=== PATIENT | male | born 1975 | race Caucasian/White ===

== ENCOUNTER 2018-04-14 18:23 | Emergency (ER) | payer MEDICARE ==
[2018-04-14 18:27] VITALS: BP 112/75; PULSE 86; RESP 18; TEMP 97.8
--- NOTE | 2018-04-14 18:57 | ED ---
Back Pain HPI - General Chief Complaint: Back Pain/Injury Stated Complaint: BACK INJURY Time Seen by Provider: 04/14/18 18:34 Source: patient Limitations: no limitations - History of Present Illness Initial Comments: This is a 43-year-old male with past medical history of chronic low back pain who presents today for chief complaint of worsening back pain times one day. 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 Patient states is able to her after the accident, denies any loss of bowel or bladder control, numbness, tingling, paresthesias or loss of sensation of the lower extremities, or muscle weakness. He admitted to increased pain with flexion over the lumbar spine denied radiation or pain in the lower extremities bilaterally. Patient states that he takes [place] and Norflex at home for chronic low back pain and muscle spasm. Patient states that he is on norco at home. Patient is following his primary care physician for low back pain who was supposed to give a referral [facility] for further evaluation and treatment. Patient has had previous low back procedure in 2012 he states at [facility] for ruptured L3 L4 L5 disc. Since patient denies any new low back trauma, falls or accidents. Patient presented today because he thinks he strained his back. Patient denies any , IVDU, recent weight loss, recent fever, chills, shortness of breath, chest pain, flank pain, abdominal pain, nausea or vomiting, numbness or tingling, dysuria or hematuria, constipation or diarrhea, headaches or visual changes, or any other complaints. - Related Data Allergies Allergy/AdvReac Type Severity Reaction Status Date / Time Penicillins Allergy Unknown Verified 04/14/18 18:28 Review of Systems ROS Statement: Those systems with pertinent positive or pertinent negative responses have been documented in the HPI. ROS Other: All systems not noted in ROS Statement are negative. Constitutional: Denies: fever, chills Eyes: Denies: vision change ENT: Denies: hearing loss Respiratory: Denies: cough, dyspnea, wheezes, hemoptysis, stridor Cardiovascular: Denies: chest pain, palpitations, orthopnea, edema Endocrine: Denies: fatigue Gastrointestinal: Denies: abdominal pain, nausea, vomiting Genitourinary: Denies: urgency, dysuria, frequency, hematuria Musculoskeletal: Reports: as per HPI, back pain Skin: Denies: rash, lesions Neurological: Denies: headache, weakness, numbness, paresthesias, confusion, abnormal gait Past Medical History History of Any Multi-Drug Resistant Organisms: None Reported Past Surgical History: Back Surgery Additional Past Surgical History / Comment(s): spleen repair, facial reconstruction, left shoulder Past Psychological History: Bipolar, Schizoaffective Disorder Smoking Status: Never smoker Past Alcohol Use History: None Reported Past Drug Use History: None Reported General Exam - General Exam Comments Initial Comments: General: The patient is awake and alert, in no distress, and does not appear acutely ill. Eye: Pupils are equal, round and reactive to light, extra-ocular movements are intact. No nystagmus. There is normal conjunctiva bilaterally. No signs of icterus. Ears, nose, mouth and throat: There are moist mucous membranes and no oral lesions. Neck: The neck is supple, there is no tenderness or JVD. Cardiovascular: There is a regular rate and rhythm. No murmur, rub or gallop is appreciated. Respiratory: Lungs are clear to auscultation, respirations are non-labored, breath sounds are equal. No wheezes, stridor, rales, or rhonchi. Musculoskeletal: No erythema, rashes or lesions of the lumbar spine, no obvious deformities. Patient able to forward flex, hyperextend, lateral flexion and rotatory of the lumbar spine with more discomfort with forward flexion. Patient denied midline tenderness to palpation of the lumbar vertebral column, however he admitted to bilateral paravertebral muscle tenderness to palpation with the left greater than the right. Strength 5/5 at the hips, knees, ankle and feet bilaterally. Sensation intact of LE equally b/l , including saddle region. Pulses equal bilaterally 2+. Pt able to heel and toe walk without difficulty. Gait ataxic. No evidence of muscle spasm or fasciculations. +2/5 patellar and achilles DTR. Neurological: A&O x 3. CN II-XII intact, There are no obvious motor or sensory deficits. Coordination appears grossly intact. Speech is normal. Skin: Skin is warm and dry and no rashes or lesions are noted. Psychiatric: Cooperative, appropriate mood & affect, normal judgment. Limitations: no limitations Course Vital Signs 04/14/18 18:24 Temperature 97.8 F Pulse Rate 86 Respiratory 18 Rate Blood Pressure 112/75 O2 Sat by Pulse 98 Oximetry Medical Decision Making - Medical Decision Making Pt given valium 5mg and home rx of norco for pain and muscle tension of the lumbar spine. XR obtained revealed no acute process and normal height between vertebral bodies. Pt stated that the valium helped a little bit. He showed no signs of neurovascular compromise. At this time given hx & physican exam findings with (-) XR of lumbar spine pt needs further evaluation from orthopedic surgery for both his acute and chronic low back pain. His acute pain is most likely due to a lumbar strain. Case was discussed in detail with Dr. Roberts who agreed with impression and plan. pt stated that he had been trying to get an orthopedic referal from his PCP for orthopedics and was pleased with plan. At this time i have low suspicion for a cauda equina or any neurovascular compromise. Pt was discharged in stable condition. Disposition Clinical Impression: Low back strain, Acute exacerbation of chronic low back pain Disposition: HOME SELF-CARE Condition: Good Instructions: Acute Low Back Pain (ED), Chronic Back Pain (ED) Additional Instructions: Please use home medication as discussed. Please follow-up in the next 2 days with [facility]. Please return to emergency room if the symptoms increase or worsen or for any other concerns. Is patient prescribed a controlled substance at d/c from ED?: No Referrals: Margo Dias MD [Primary Care Provider] - 1-2 days Carol Villanueva PAC [PHYSICIAN [facility]] - 1-2 days Time of Disposition: 20:32
[2018-04-14] MEDS ORDERED: DIAZEPAM 5 MG TAB PO STA (19:19)
[2018-04-14] MEDS ORDERED: HYDROcodone/APAP 7.5-325MG 1 EACH TAB PO ONE (19:20)
--- NOTE | 2018-04-14 20:20 | XR ---
EXAMINATION TYPE: XR lumbar spine 2 or 3V DATE OF EXAM: 04/14/2018 COMPARISON: NONE HISTORY: 43-year-old male with low back pain TECHNIQUE: 3 views FINDINGS: Small T12 ribs. 5 lumbar type vertebral bodies. Mild multilevel degenerative disc disease. Mild facet arthropathy lower lumbar spine. Vertebral body heights are preserved. Alignment is maintained. IMPRESSION: Mild degenerative disc disease. Mild facet arthropathy lower lumbar spine. No vertebral compression c ollapse or malalignment.
== END 2018-04-14 20:38 | disposition home or self-care (01) ==
LOC: EC 18:23
DX: S39.012A Strain of muscle, fascia and tendon of lower back, initial encounter (principal); Z98.890 Other specified postprocedural states; Z88.0 Allergy status to penicillin; X50.1XXA Overexertion from prolonged static or awkward postures, initial encounter
CPT/HCPCS: 72100; 99283

== ENCOUNTER 2018-08-27 21:43 | Emergency (ER) | payer MEDICARE ==
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
[2018-08-27 23:59] LABS: Basophils # (A) 0.1 k/uL (0-0.2); Basophils % (A) 1 %; Eosinophils # (A) 0.4 k/uL (0-0.7); Eosinophils % (A) 5 %; HCT 44.5 % (39.0-53.0); HGB 15.2 gm/dL (13.0-17.5); Lymphocytes # (A) 2.2 k/uL (1.0-4.8); Lymphocytes % (A) 29 %; MCH 31.4 pg (25.0-35.0); MCHC 34.3 g/dL (31.0-37.0); MCV 91.8 fL (80.0-100.0); Mean Platelet Volume 6.6; Monocytes # (A) 0.4 k/uL (0-1.0); Monocytes % (A) 5 %; Neutrophils # (A) 4.3 k/uL (1.3-7.7); Neutrophils % (A) 58 %; Platelet Count 154 k/uL (150-450); RBC 4.85 m/uL (4.30-5.90); RDW 13.2 % (11.5-15.5); WBC 7.4 k/uL (3.8-10.6)
[2018-08-28 00:10] LABS: Anion Gap 7 mmol/L; Blood Urea Nitrogen 9 mg/dL (9-20); Calcium 9.1 mg/dL (8.4-10.2); Carbon Dioxide 25 mmol/L (22-30); Chloride 109 mmol/L (98-107); Glucose 78 mg/dL (74-99); Potassium 3.4 mmol/L (3.5-5.1); Sodium 141 mmol/L (137-145); Total Protein 6.6 g/dL (6.3-8.2)
[2018-08-28 00:11] LABS: ALT 108 U/L (21-72); AST 70 U/L (17-59); Acetaminophen <10.0 ug/mL; Albumin 3.8 g/dL (3.5-5.0); Alkaline Phosphatase 61 U/L (38-126); Salicylate <1.0 mg/dL; Total Bilirubin 0.6 mg/dL (0.2-1.3)
[2018-08-28 09:41] VITALS: BP 131/84; PULSE 75; RESP 17; TEMP 97.4
[2018-08-28 10:14] LABS: Appearance,Urine Cloudy (Clear); Bacteria,Urine Rare /hpf; Bilirubin,Urine Negative (Negative); Blood,Urine Negative (Negative); Color,Urine Yellow; Glucose,Urine (UA) Negative (Negative); Ketones,Urine Negative (Negative); Leukocyte Esterase,Urine Moderate (Negative); Mucus,Urine Few /hpf; Nitrite,Urine Negative (Negative); Protein,Urine Trace (Negative); RBC,Urine 4 /hpf (0-5); Specific Gravity,Urine 1.015 (1.001-1.035); Squamous Epithelial Cell,Urine 4 /hpf (0-4); Urobilinogen,Urine <2.0 mg/dL (<2.0); WBC,Urine 17 /hpf (0-5)
[2018-08-28 10:17] LABS: Amphetamine Screen,Urine Detected (NotDetected); Barbiturate Screen,Urine Not Detected (NotDetected); Benzodiazepines Screen,Urine Detected (NotDetected); Cocaine Screen,Urine Not Detected (NotDetected); Methadone Screen, Urine Not Detected (NotDetected); Opiate Screen,Urine Not Detected (NotDetected); Oxycodone Screen, Urine Not Detected (NotDetected); Phencyclidine Screen,Urine Not Detected (NotDetected); Tricyclic Antidepressant,Urine Detected (NotDetected); Urn Cannabinoid Scrn Detected (NotDetected)
[2018-08-28 14:26] LABS: ALT 107 U/L (21-72); AST 73 U/L (17-59); Alkaline Phosphatase 66 U/L (38-126); Anion Gap 6 mmol/L; Blood Urea Nitrogen 8 mg/dL (9-20); Calcium 9.2 mg/dL (8.4-10.2); Carbon Dioxide 26 mmol/L (22-30); Chloride 110 mmol/L (98-107); Glucose 74 mg/dL (74-99); Potassium 3.9 mmol/L (3.5-5.1); Sodium 142 mmol/L (137-145); Total Bilirubin 0.8 mg/dL (0.2-1.3); Total Protein 6.9 g/dL (6.3-8.2)
== END 2018-08-28 18:54 ==
LOC: EC 21:43
DX: F20.0 Paranoid schizophrenia (principal); Z88.0 Allergy status to penicillin
CPT/HCPCS: 36415; 80053; 80306; 81001; 82075; 83520; 85025; 93005; 99285

== ENCOUNTER 2019-01-01 14:26 | Inpatient (IN) | payer MEDICARE ==
--- NOTE | 2019-01-01 18:32 | ED ---
General Adult HPI - General Chief complaint: Psychiatric Symptoms Stated complaint: Mental health, waste picker order Time Seen by Provider: 01/01/19 14:34 Source: patient, RN notes reviewed Mode of arrival: ambulatory Limitations: no limitations - History of Present Illness Initial comments: 43-year-old male with a past medical history of bipolar disorder, schizoaffective disorder presents to the emergency department by pickup order. Patient states that he is in an argument with his sister. States that he is staying in his mother's house and his sister's is staying there and appears there is no reason for her to be there. States that he is unhappy there are two teenage girls and seems very angry at them. Patient states he has been taking his medications on it off.Patient has no other complaints at this time including shortness of breath, chest pain, abdominal pain, nausea or vomiting, headache, or visual changes. - Related Data Home Medications Medication Instructions Recorded Confirmed ARIPiprazole [Abilify] 20 mg PO DAILY 01/01/19 01/01/19 Melatonin 5 mg PO HS 01/01/19 01/01/19 Allergies Allergy/AdvReac Type Severity Reaction Status Date / Time Penicillins Allergy Unknown Verified 01/01/19 14:55 Review of Systems ROS Statement: Those systems with pertinent positive or pertinent negative responses have been documented in the HPI. ROS Other: All systems not noted in ROS Statement are negative. Past Medical History Past Medical History: No Reported History History of Any Multi-Drug Resistant Organisms: None Reported Past Surgical History: Back Surgery Additional Past Surgical History / Comment(s): spleen repair, facial reconstruction, left shoulder Past Psychological History: Bipolar, Schizoaffective Disorder Smoking Status: Current some day smoker Past Alcohol Use History: None Reported Past Drug Use History: None Reported General Exam Limitations: no limitations General appearance: alert, in no apparent distress Head exam: Present: atraumatic, normocephalic, normal inspection Eye exam: Present: normal appearance, PERRL, EOMI. Absent: scleral icterus, conjunctival injection, periorbital swelling ENT exam: Present: normal exam, mucous membranes moist Neck exam: Present: normal inspection, full ROM. Absent: tenderness, meningismus, lymphadenopathy Respiratory exam: Present: normal lung sounds bilaterally. Absent: respiratory distress, wheezes, rales, rhonchi, stridor Cardiovascular Exam: Present: regular rate, normal rhythm, normal heart sounds. Absent: systolic murmur, diastolic murmur, rubs, gallop, clicks Neurological exam: Present: alert, oriented X3, CN II-XII intact Psychiatric exam: Present: agitated Course Vital Signs 01/01/19 14:27 Temperature 97.9 F Pulse Rate 107 H Respiratory 18 Rate Blood Pressure 154/100 O2 Sat by Pulse 96 Oximetry Medical Decision Making - Medical Decision Making 43-year-old agitated appearing male presents by pickup order. Patient has history of schizophrenia. Patient is staying with his mom and his sister and 2 teenage grosser staying there. Patient is very angry at his sister and the two girls for being in the house when it is not necessary. I'm uncomfortable with letting patient go home with agitated at 2 teenage girls. EPS evaluated patient and agrees with this. Patient will be admitted. Patient actually is receptive to this and agrees to be admitted. Disposition Clinical Impression: Agitation, Schizoaffective disorder Disposition: ADMITTED IP TO THIS HOSP Condition: Fair Is patient prescribed a controlled substance at d/c from ED?: No Referrals: Margo Dias MD [Primary Care Provider] - 1-2 days Time of Disposition: 18:32
[2019-01-01] MEDS ORDERED: MAG HYDROX/AL HYDROX/SIMETH 30 ML CUP PO PRN (19:31)
[2019-01-01] MEDS ORDERED: MAGNESIUM HYDROXIDE 2,400 MG/10 ML CUP PO PRN (19:31)
[2019-01-01] MEDS ORDERED: ZIPRASIDONE 20 MG VIAL IM PRN (19:31)
[2019-01-01] MEDS ORDERED: LORazepam 2 MG/ML INJ IM PRN (19:37)
[2019-01-01] MEDS: MELATONIN 5 MG TABLET PO SCH (21:10)
[2019-01-02 09:14] LABS: Basophils # (A) 0.1 k/uL (0-0.2); Basophils % (A) 1 %; Eosinophils # (A) 0.3 k/uL (0-0.7); Eosinophils % (A) 3 %; HCT 48.3 % (39.0-53.0); HGB 16.4 gm/dL (13.0-17.5); Lymphocytes # (A) 1.3 k/uL (1.0-4.8); Lymphocytes % (A) 16 %; MCH 31.5 pg (25.0-35.0); MCV 92.5 fL (80.0-100.0); Mean Platelet Volume 7.1; Monocytes # (A) 0.5 k/uL (0-1.0); Monocytes % (A) 6 %; Neutrophils # (A) 5.8 k/uL (1.3-7.7); Neutrophils % (A) 71 %; Platelet Count 176 k/uL (150-450); RBC 5.22 m/uL (4.30-5.90); RDW 12.8 % (11.5-15.5); WBC 8.3 k/uL (3.8-10.6)
[2019-01-02 09:26] LABS: ALT 45 U/L (21-72); AST 32 U/L (17-59); Albumin 4.4 g/dL (3.5-5.0); Alkaline Phosphatase 55 U/L (38-126); Anion Gap 8 mmol/L; Bilirubin, Delta 0.3 mg/dL (0.0-0.2); Bilirubin,Unconjugated 1.1 mg/dL (0.0-1.1); Blood Urea Nitrogen 12 mg/dL (9-20); Calcium 9.3 mg/dL (8.4-10.2); Carbon Dioxide 25 mmol/L (22-30); Chloride 106 mmol/L (98-107); Cholesterol 150 mg/dL (<200); Glucose 134 mg/dL (74-99); HDL Cholesterol 36 mg/dL (40-60); LDL Cholesterol,Calculated 89 mg/dL (0-99); Potassium 4.4 mmol/L (3.5-5.1); Sodium 139 mmol/L (137-145); Total Bilirubin 1.4 mg/dL (0.2-1.3); Triglycerides 125 mg/dL (<150)
[2019-01-02] MEDS: ACETAMINOPHEN TAB 325 MG TAB PO PRN (09:27)
[2019-01-02] MEDS ORDERED: IBUPROFEN 800 MG TAB PO PRN (11:09)
--- NOTE | 2019-01-02 11:09 | P.HP ---
Psychiatric H&P - . History & Physical: Allergies Allergy/AdvReac Type Severity Reaction Status Date / Time Penicillins Allergy Unknown Verified 01/01/19 14:55 Vital Signs Temp 97.4 F L 01/01/19 21:49 Pulse 78 01/01/19 21:49 Resp 20 01/01/19 21:49 BP 120/77 01/01/19 21:49 Pulse Ox 99 01/01/19 18:39 Intake & Output 01/01/19 01/02/19 01/02/19 18:59 06:59 18:59 Weight 109.905 kg 107.8 kg Laboratory Last Values WBC 8.3 k/uL (3.8-10.6) 01/02/19 08:25 RBC 5.22 m/uL (4.30-5.90) 01/02/19 08:25 Hgb 16.4 gm/dL (13.0-17.5) 01/02/19 08:25 Hct 48.3 % (39.0-53.0) 01/02/19 08:25 MCV 92.5 fL (80.0-100.0) 01/02/19 08:25 MCH 31.5 pg (25.0-35.0) 01/02/19 08:25 MCHC 34.0 g/dL (31.0-37.0) 01/02/19 08:25 RDW 12.8 % (11.5-15.5) 01/02/19 08:25 Plt Count 176 k/uL (150-450) 01/02/19 08:25 Neutrophils % 71 % 01/02/19 08:25 Lymphocytes % 16 % 01/02/19 08:25 Monocytes % 6 % 01/02/19 08:25 Eosinophils % 3 % 01/02/19 08:25 Basophils % 1 % 01/02/19 08:25 Neutrophils # 5.8 k/uL (1.3-7.7) 01/02/19 08:25 Lymphocytes # 1.3 k/uL (1.0-4.8) 01/02/19 08:25 Monocytes # 0.5 k/uL (0-1.0) 01/02/19 08:25 Eosinophils # 0.3 k/uL (0-0.7) 01/02/19 08:25 Basophils # 0.1 k/uL (0-0.2) 01/02/19 08:25 Sodium 139 mmol/L (137-145) 01/02/19 08:45 Potassium 4.4 mmol/L (3.5-5.1) 01/02/19 08:45 Chloride 106 mmol/L (98-107) 01/02/19 08:45 Carbon Dioxide 25 mmol/L (22-30) 01/02/19 08:45 Anion Gap 8 mmol/L 01/02/19 08:45 BUN 12 mg/dL (9-20) 01/02/19 08:45 Creatinine 1.02 mg/dL (0.66-1.25) 01/02/19 08:45 Est GFR (CKD-EPI)AfAm >90 (>60 ml/min/1.73 sqM) 01/02/19 08:45 Est GFR (CKD-EPI)NonAf 89 (>60 ml/min/1.73 sqM) 01/02/19 08:45 Glucose 134 mg/dL (74-99) H 01/02/19 08:45 Calcium 9.3 mg/dL (8.4-10.2) 01/02/19 08:45 Total Bilirubin 1.4 mg/dL (0.2-1.3) H 01/02/19 08:45 Conjugated Bilirubin 0.0 mg/dL (0.0-0.3) 01/02/19 08:45 Unconjugated Bilirubin 1.1 mg/dL (0.0-1.1) 01/02/19 08:45 Delta Bilirubin 0.3 mg/dL (0.0-0.2) H 01/02/19 08:45 AST 32 U/L (17-59) 01/02/19 08:45 ALT 45 U/L (21-72) 01/02/19 08:45 Alkaline Phosphatase 55 U/L (38-126) 01/02/19 08:45 Total Protein 7.0 g/dL (6.3-8.2) 01/02/19 08:45 Albumin 4.4 g/dL (3.5-5.0) 01/02/19 08:45 Triglycerides 125 mg/dL (<150) 01/02/19 08:45 Cholesterol 150 mg/dL (<200) 04/25/19 08:45 LDL Cholesterol, Calc 89 mg/dL (0-99) 01/02/19 08:45 HDL Cholesterol 36 mg/dL (40-60) L 01/02/19 08:45 TSH 0.729 mIU/L (0.465-4.680) 01/02/19 08:45 01/02/19 10:58 IDENTIFYING DATA: The patient is a 43-year-old male who was admitted to the mental health unit for agitated behavior and possible psychosis. HPI: The patient was brought in by the police as they were called by the patient's sister for agitated behavior. The patient states that there were under aged children in his home drinking alcohol and using drugs and this was okay with his mother and sister. He became agitated and began yelling. He states that these teenagers were also stealing from him and tampering with his computer. The patient is a limited historian today. He does appear to have a diagnosis of schizoaffective disorder bipolar type. He states that he was prescribed Abilify 20 mg daily has been off of that medication for several months stating he can afford it. He reports a cost over $380. He states he was recently re-opened with [facility]. Apparently he was hospitalized at [facility] and was put on a 180 day treatment order. He reports meeting with a therapist at [facility] but is unsure of who his prescribing clinician may be. He describes his mood as being good except for physical pain he reports he is sleeping at night appetite stable. He is reporting no homicidal ideation intent or plan. He is endorsing no auditory or visual hallucinations or any specific delusions. Several times he states he has proof of the allegations he's making. He reports there are no firearms in his home. PAST PSYCHIATRIC HISTORY: This is his third inpatient psychiatric admission his last was at [facility]. There was a suicide attempt 5 years ago where he overdosed on Ativan. He states that in the past he was prescribed Invega Risperdal Zyprexa Seroquel. He feels that the Abilify can be effective any reports no side effects from it. PMH: Back pain due to an injury where he fell down stairs 5 years ago he states he's had surgery on L3-L4. ALLERGIES: Penicillin MEDICATIONS: None at this time CHEMICAL DEPENDENCY HISTORY: He reports he is using no alcohol marijuana or illicit drugs. We do not have a urine drug screen at this time. Reportedly there was a substance in his belongings that could possibly be methamphetamine. In reviewing community mental health records it appears he is diagnosed with methamphetamine use disorder and does have a history of using that on a daily basis. He states he's never been placed in residential treatment for chemical d ependency reasons. FAMILY PSYCHIATRIC HISTORY: "All of them" he states a sister committed suicide FAMILY CHEMICAL DEPENDENCY HISTORY: "All of them" SOCIAL HISTORY: The patient is 43 years old he is she has 2 children ages 26 and 28. He lives with his mother his mother is his guardian. He is unemployed but receives a disability income. He states that he did work for [employer] for 5 years. He has a ninth grade education and later earned a GED no history of service. He is originally from [place]. He has 1 brother and 4 sisters. Legal history the patient states he was arrested for fleeing and eluding no violent crimes. He is very evasive in asking about his legal history. He states his longest incarceration was 1.5 years in [facility]. Abuse history none reported. MENTAL STATUS EXAM: He patient is a male appearing his stated age he is dressed in hospital attire he seated in the chair looking away for most of the interview. He reports his mood is good except for back pain currently. He reports no suicidal or homicidal ideation intent or plan. Affect is constricted. He denies having any auditory or visual hallucinations or any specific delusions as we reviewed several types. However it is possible that he could be experiencing paranoid and persecutory thoughts. He demonstrates note tangential thinking loose associations or flight of ideas. He does not appear hypomanic or manic currently. Insight and judgment are limited. He demonstrates no verbal or physical aggressiveness he demonstrates no involuntary repetitive movements. He did not wish to participate in cognitive testing at this time. STRENGTHS/WEAKNESSES: Strengths: Income, housing weaknesses: Suspected ongoing substance use lack of compliance with medication INTELLECTUAL FUNCTIONING: below average IMPRESSIONS: [] 1. Schizoaffective disorder bipolar type, history of methamphetamine use disorder history of cannabis use disorder PLAN: He patient has been admitted to the mental health unit he is on an existing treatment order. We will restart the Abilify 20 mg daily and he is agreeable. We will likely convert this to the Abilify maintena injection. He will be seen by internal medicine for routine history and physical exam. Social work will meet with him to complete a psychosocial assessment and begin discharge planning. We will involve his family in treatment and discharge planning as he will allow. We will monitor him for safety he is encouraged to participate in the milieu.
[2019-01-02 13:56] LABS: Glucose,Whole Blood 99 mg/dL (75-99)
--- NOTE | 2019-01-02 14:32 | P.CON ---
Consult Note - . Assessment/Plan:: Reason for consultation-dizziness History of present illness-this is a 43-year-old gentleman who is admitted to psych floor for agitated behavior and for psychosis. He's been on medication for that. Psychiatry is following him for that. Internal medicine service was consulted as the patient is having dizziness and is having headache. He said that his dizziness started about a few hours ago and has been having headache since morning. He does not complain of any blurry vision or any loss of vision, he does not complain of any chest pain or racing heart, no cough no shortness of breath, no abdominal pain, he does not complain of any nausea vomiting, or diarrhea constipation, he does not complain of any tingling numbness in the extremities, no itch or rash. Past medical history- patient denies any past medical history. He has a history of bipolar disorder and schizoaffective disorder Past surgical history-significant for back surgery, facial reconstruction, left shoulder surgery, spleen repair. Social history-patient is a heavy smoker, no history of alcohol or any other drug abuse. Although the nursing reported to me that they found some unknown drug with the patient Family history-noncontributory Physical exam Vitals- temperature 97.4 pulse 70 respirations 20 blood pressure 120/77 satting 99% on room air. Labwork done this morning shows WBC 8.3 hemoglobin 16.4 platelets 176 sodium 139 potassium 4.4 bun 12 creatinine 1.02 GFR 89 glucose 99. On exam, alert and oriented x3. HEENT: Conjunctivae normal. eyes normal. NECK: No JVD. No thyroid enlargement. No LNs CARDIOVASCULAR: S1, S2 muffled. No murmur RESPIRATION: Breath sounds diminished in the bases. No rhonchi or crackles. No bronchial breathing. ABDOMEN: Soft, nontender . No guarding. no masses palpable. No ascites, No hepatosplenomegaly.Bowel sounds heard. LEGS: No edema. no swelling NERVOUS SYSTEM: Cranial N 2-12 grossly normal. Moves all 4 limbs. No focal deficits. No sensory deficit. No signs of cerebellar dysfucntion. Skin: no ulcer no rash Joints: No active swelling. No inflammation. Lymphatic system. No LN neck axilla or groin. Impression - Dizziness - Schizoaffective disorder - Bipolar disorder Plan - Patient is admitted to psych floor - Internal medicine and consulted for dizziness - Patient says that his dizziness started about a few hours ago. He is complaining of headache. We'll give him Tylenol and Motrin. - If his dizziness doesn't get better we'll order for CT head and further workup for his dizziness. Also the patient says that he did not eat that might be causing him to be dizzy. - We'll keep a watch on him - Further management as per psych team - We'll continue to follow patient up
[2019-01-02] MEDS: LORazepam 1 MG TAB PO PRN (15:49)
[2019-01-02 21:31] LABS: Hemoglobin A1C 5.6 % (4.0-6.0)
[2019-01-02] MEDS: MELATONIN 5 MG TABLET PO SCH (21:56)
--- NOTE | 2019-01-03 11:06 | P.PN ---
Progress Note - Text Interval history: The patient is found in his room he follows me to an interview room. He indicates feelings of frustration. He feels persecuted by family members where he was residing. He states that he isn't going to attending groups and we can keep him here for 1-2 years. He states he wants to stay here at least for the remaining balance of his court order. He has no objection to using the Abilify. He states he wants to move to [place] as soon as possible to get away from family in this area. Mental status exam: The patient is alert affect is somewhat labile. Initially he is cooperative he becomes more agitated during the session but is redirectable. He is reporting no thoughts of harming himself or others. He does have some insight into his irritable affect. He is reporting no auditory or visual hallucinations. He does appear to be engaged in some paranoid thinking regarding his family. It is possible there are things there that actually are antagonizing him as well. He demonstrates no involuntary repetitive movements. Vital signs reviewed. Plan: The patient will continue on the Abilify as prescribed. We will allow the some time to stabilize his mood and improved symptoms of paranoia. We will monitor him for safety. He is encouraged to participate in the milieu although he has been resistant. He requires continued psychiatric hospitalization until clinically stabilized.
[2019-01-03] MEDS: MELATONIN 5 MG TABLET PO SCH (20:27)
--- NOTE | 2019-01-04 11:35 | P.PN ---
Progress Note - Text Progress Note Date: 01/04/19 Interval history: Chirag was seen in his room since he didn't want to get out, the examination room and was examined at bedside. He stated he got up for breakfast this morning and return to back to bed. States he does not interact with other people and he is quite frustrated with the whole process of being in the hospital. He is very poor historian and lacks insight. Mental status examination: This is a 43-year-old well known patient that had difficulty with focus and concentration seen in hospital gown lying in bed. His speech is sparse soft and hesitant. Attitude and behavior is guarded withdrawn indifferent. Mood is depressed and anxious with hopelessness. Affect is flat and blunted. Orientation person place. Thought content within normal. Risk factors remains suicidal hopeless and helpless without a plan. Perception does admit to auditory hallucinations. She thought process is concrete and circumstantial. Concentration and attention span is impaired per observation and interview with the patient. Recent memory within normal. Remote memory within normal. Intelligence below average. Judgment poor. Insight poor. Plan is to continue the current medications and observe on 15 minute checks and suicidal ideation. Encouraged him to get up and go to groups and he lacks the motivation and insight to do that.
[2019-01-04] MEDS: LORazepam 1 MG TAB PO PRN (16:34)
[2019-01-04] MEDS: MELATONIN 5 MG TABLET PO SCH (20:34)
[2019-01-05] MEDS: ACETAMINOPHEN TAB 325 MG TAB PO PRN (09:11)
--- NOTE | 2019-01-05 11:19 | P.PN ---
Progress Note - Text Progress Note Date: 01/05/19 Interval history: Chart reviewed this morning and discussed with nursing staff is been out of his room and participating in groups which he has not been doing. Interviewed patient and his room and states that he has no desire by [place] in bed because a step back pain and was given Tylenol retreated to his were rumors been isolating. Mental status examination: This is a 43-year-old male who looks disheveled appears older than his stated age. Speech language is slow and halting soft. Attitude and behavior is guarded withdrawn indifferent. Mood is depressed anxious flat hopeless. Affect is flat and blunted constricted. Orientation is oriented to person place and time and denies situation. Thought content within normal. Risk factors denies suicidal ideation or homicidal ideation. Perception still has auditory hallucinations and tends to isolate because of the voices. Thought content is concrete and circumstantial nature. Concentration and attention are impaired per observation and interview with the patient. Recent remote memory within normal. Intelligence below average. Judgment and insight are poor at best. Plan: Patient will remain on 15 minute checks for suicidal and encourage him to go to groups and participate which he states he does not want to do. We'll maintain him on his current psychiatric medications and monitor.
[2019-01-05] MEDS: MELATONIN 5 MG TABLET PO SCH (20:16)
--- NOTE | 2019-01-06 11:23 | P.PN ---
Progress Note - Text Interval history: The patient was found in his room he follows me to an interview room. He indicates his mood is improving. He has been selectively attending a few groups. He reports that he feels better and would like to be discharged. Staff indicated that family expressed some concerns last week about the patient being discharged. There is some report that he may be changing his residence to [place]. Social work will contact the patient's family to clarify and discussed his current status versus baseline function. The patient states he is highly motivated to be discharged as he needs to pay his credit card bills. Mental status exam: The patient is alert he is dressed in his own clothing. Hygiene grooming adequate. Speech is fluent spontaneous nonpressured. He denies having any suicidal or homicidal thoughts. He reports no auditory or visual hallucinations. He states that he continues to believe that he is the victim of computer crimes. He demonstrates no tangential thinking loose associations or flight of ideas. He was directable. He demonstrated a range of affect including appropriate use of humor. He demonstrates no verbal or physical aggressiveness he demonstrates no involuntary repetitive movements. Plan: The patient will continue on the Abilify as written. We will consider titrating the dose. Social work will contact the patient's family to discuss the discharge plan. We're uncertain what role substance use played in terms of his symptoms prior to admission. Clearly if he was engaged in methamphetamine use hissymptoms of psychosis would've been exacerbated prior to admission. We will continue monitor him for safety vital signs reviewed.
[2019-01-06] MEDS: LORazepam 1 MG TAB PO PRN (16:41)
[2019-01-06] MEDS: MELATONIN 5 MG TABLET PO SCH (22:00)
--- NOTE | 2019-01-07 10:49 | P.PN ---
Progress Note - Text Interval history: The patient is found in his room he follows me to an interview room. He states his mood is improving. He states compared to when he was admitted he feels less irritable. Sleep stable at night. Appetite stable. He reports attending 2 groups yesterday. He continues to speak with his daughter and girlfriend. He plans on moving to [place] fairly soon after being discharged from the hospital. We discussed the current medication he has no questions or concerns regarding Abilify. Mental status exam: The patient is a tall overweight male appearing his stated age. He presents with adequate hygiene grooming. Eye contact is appropriate speech is fluent spontaneous nonpressured. He denies having any a cute suicidal or homicidal ideation intent or plan. He is reporting no auditory or visual hallucinations he is endorsing no specific delusions although he may be underreporting some residual paranoid thoughts. He demonstrates no verbal or physical aggressiveness he demonstrates no involuntary repetitive movements. Insight and judgment improving. He participates in the conversation appropriately he is demonstrating an appropriate range of affect. He is oriented to person place and date. Plan: The patient will continue on the Abilify 20 mg daily. We are going to initiate the Abilify maintena injection however he is unable to afford this as an outpatient. We will continue the oral medication. Social work will contact the patient's girlfriend to confirm discharge plans. If he remains clinically stable we will discharge him tomorrow.
[2019-01-07] MEDS: LORazepam 1 MG TAB PO PRN (17:59)
[2019-01-07] MEDS: MELATONIN 5 MG TABLET PO SCH (20:46)
[2019-01-08 06:41] VITALS: BP 140/71; PULSE 70; RESP 14; TEMP 97.9
--- NOTE | 2019-01-08 10:12 | P.DS ---
Providers Date of admission: 01/01/19 19:01 Expected date of discharge: 01/08/19 Attending physician: Elvis Gilmore Consults: 01/01/19 19:31 Consult Physician Routine Consulting Provider: Madi Avelar Consult Reason/Comments: H & P and medical care Do you want consulting provider notified?: Yes Primary care physician: Arun Aragon - Discharge Diagnosis(es) (1) Schizoaffective disorder Current Visit: Yes Status: Acute Priority: High (2) Methamphetamine use disorder, mild Current Visit: Yes Status: Acute Priority: Medium (3) Cannabis use disorder, mild, abuse Current Visit: Yes Status: Acute Priority: Medium Hospital Course: Brief summary admission note: This patient is a 43-year-old horse male who was admitted to the mental health unit for agitated behavior and psychosis. The patient was brought in by police as they were called by the patient's sister. The patient was noted to be agitated he was yelling he was accusing people in the home of tampering with his computer. He carries a diagnosis of schizoaffective disorder he had been off of his psychotropic medication for several months. He is on an existing 180 day treatment order. For full details please refer to my psychiatric evaluation dated 01/02/2019. Summary of hospital course: The patient was admitted to the mental health unit on an existing court order for treatment. We reviewed his presenting symptoms and treatment options. He was agreeable to restarting Abilify at 20 mg daily. The patient tolerated the medication without any reported side effects and he demonstrated progressive improvement of symptoms while here. Initially he was focused on paranoid themes and his mood was irritable as well as his affect. This significantly improved during the course of his stay. We did not obtain a urine drug screen but he did admit to using methamphetamine just prior to the admission which obviously confounded his presentation. He was seen by internal medicine for routine history and physical exam. He chose to isolate in his room most days he would participate in only to groups. He developed a plan of moving down to [place] with his daughter upon discharge. He will be staying with his girlfriend temporarily until he moves. We discussed using Abilify maintena but this would not be covered as an outpatient so he will continue on oral dose of the medication. Mental status exam: The patient is a tall overweight male appearing his stated age. He has adequate hygiene grooming. Speech is fluent spontaneous nonpressured. He denies having any suicidal or homicidal ideation intent or plan. He reports no auditory or visual hallucinations he is endorsing no specific delusions. He demonstrates no verbal or physical aggressiveness. He demonstrates no involuntary repetitive movements. Thought process is free of any tangential thinking loose associations or flight of ideas. He does not appear hypomanic or manic. He is pleasant cooperative and easily directed during the session. Affect is appropriately expressive. He remains oriented to person place and date. Insight and judgment grossly intact. Impressions 1. Schizoaffective disorder bipolar type, history of methamphetamine use disorder history of cannabis use disorder Plan: The patient will continue on the Abilify 20 mg daily. The patient plans on relocating to [place]. He will temporarily stay with his girlfriend intellectual that move. He will be able to follow up with [facility] prior to that relocation. He is instructed to abstain from any use of marijuana alcohol or any illicit drug. We discussed the dangers of using those substances as a will adversely affect his mood and elevate his safety risk as well as exacerbating symptoms of psychosis. He does not wish to participate in inpatient chemical dependency treatment. At this time there is no imminent safety risk he is appropriate for transition to outpatient care. He is instructed to return to the hospital with any acute safety concerns. Patient Condition at Discharge: Stable Plan - Discharge Summary New Discharge Prescriptions: Continue Melatonin 5 mg PO HS ARIPiprazole [Abilify] 20 mg PO DAILY #30 tab Discharge Medication List Melatonin 5 mg PO HS 01/01/19 [History] ARIPiprazole [Abilify] 20 mg PO DAILY #30 tab 01/08/19 [Rx] Follow up Appointment(s)/Referral(s): [facility] [Outside] - 01/09/19 2:30 pm (Juanita López 01/09 @ 14:30 Dr Laurie Oh 01/17 @ 14:00) Margo Dias MD [Primary Care Provider] - As Needed Patient Instructions/Handouts: Schizoaffective Disorder (GEN), Suicide Prevention (DC) Activity/Diet/Wound Care/Special Instructions: Activity and diet as tolerated. Avoid the use of street drugs and alcohol. Take all medications as prescribed. When you are in need of refills on your medications please contact your medical provider and/or outpatient psychiatrist to have this done. Please go to scheduled outpatient appointment for aftercare treatment. If symptoms return or become worse, call the crisis line at and/or go to the nearest emergency room for an evaluation.
== END 2019-01-08 12:05 | disposition home or self-care (01) | DRG 885 ==
LOC: EC 14:26 → 3MHU 19:01
PROVIDERS: ADMIT Psychiatry & Neurology Psychiatry; ATTEND Psychiatry & Neurology Psychiatry
DX: F25.0 Schizoaffective disorder, bipolar type (principal); R45.1 Restlessness and agitation; F17.200 Nicotine dependence, unspecified, uncomplicated; F15.90 Other stimulant use, unspecified, uncomplicated; F12.10 Cannabis abuse, uncomplicated; E66.3 Overweight; T43.596A Underdosing of other antipsychotics and neuroleptics, initial encounter; Z68.31 Body mass index [BMI] 31.0-31.9, adult; Z91.120 Patient's intentional underdosing of medication regimen due to financial hardship; Z79.899 Other long term (current) drug therapy; Z91.5 Personal history of self-harm; Z88.0 Allergy status to penicillin; Z81.8 Family history of other mental and behavioral disorders
CPT/HCPCS: 80053; 80061; 82075; 82248; 83036; 84443; 85025; 99284